=== PATIENT | male | born 1975 | race American Indian/Alaskan Native ===

== ENCOUNTER 2016-06-01 13:01 | Inpatient (IN) | payer BC, OTHER ==
[2016-06-01] MEDS ORDERED: DUONEB 0.5 MG-3 MG/3 ML SOLN IH ONE (13:19)
--- NOTE | 2016-06-01 13:20 | Emergency Department Report ---
Chief Complaint: Dyspnea/Respdistress Stated Complaint: SHIVAM/CHF Time Seen by Provider: 06/01/16 13:14 - HPI History of Present Illness: Patient is a 40 y/o male with h/o CHF who presents due to SOB since this morning. Patient denies any chest pain, he states that he ran out of his torsemide 2 days ago. - ROS Review of Systems: no chest pain - Exam Vital Signs: Vital Signs 06/01/16 13:04 Temperature 97.9 F Pulse Rate 107 H Respiratory 24 Rate Blood Pressure 136/80 O2 Sat by Pulse 88 Oximetry Physical Exam: NAD MSE screening note: Focused history and physical exam performed. Due to findings the following was ordered:sob protocol ED Disposition for MSE Condition: Stable
[2016-06-01] MEDS ORDERED: LASIX IV ONE (13:48)
--- NOTE | 2016-06-01 13:55 | Emergency Department Report ---
HPI - General Chief Complaint: Dyspnea/Respdistress Time Seen by Provider: 06/01/16 13:41 - HPI HPI: Room 20 The patient is a 40-year-old male presenting with a chief complaint of shortness of breath and peripheral edema. The patient has a history of congestive heart failure states for 1 week has noticed bilateral lower extremity edema. The patient states this morning he noticed swelling in his abdomen shortness of breath and decided to come to the ED. The patient states he ran out of his torsemide 2 days ago. Patient denies any history of chest pain or fever but admits to a cough occasionally productive of white sputum Location: [see above] Duration: [see above] Quality: Shortness of breath Severity: Moderate Modifying factors: [see above] Context: [see above] Mode of transportation: [not driving] ED Past Medical Hx - Past Medical History Hx Hypertension: Yes Hx Congestive Heart Failure: Yes - Surgical History Past Surgical History?: No - Family History Family history: no significant - Social History Smoking Status: Never Smoker Substance Use Type: None - Medications Home Medications: Home Medications Medication Instructions Recorded Confirmed Last Taken Type Amiodarone [Cordarone 200 MG TAB] 200 mg PO BID 03/04/16 06/01/16 03/03/16 History Carvedilol [Coreg] 12.5 mg PO BID 03/04/16 06/01/16 03/03/16 History Torsemide [Demadex] 40 mg PO BID 03/04/16 06/01/16 03/03/16 History hydrALAZINE [Apresoline] 50 mg PO BID 03/04/16 06/01/16 03/03/16 History Aspirin [Aspirin TAB] 325 mg PO QDAY 06/01/16 06/01/16 Unknown History ISOSORBIDE MONOnitrate [Imdur ER] 60 mg PO QDAY 06/01/16 06/01/16 Unknown History Spironolactone [Aldactone] 50 mg PO QDAY 06/01/16 06/01/16 Unknown History hydrALAZINE [Apresoline] 50 mg PO BID 06/01/16 06/01/16 Unknown History ED Review of Systems ROS: Stated complaint: SHIVAM/CHF Other details as noted in HPI Comment: All other systems reviewed and negative Constitutional: denies: chills, fever Eyes: denies: eye pain, eye discharge, vision change ENT: denies: ear pain, throat pain Respiratory: cough, shortness of breath Cardiovascular: denies: chest pain, palpitations Endocrine: no symptoms reported Gastrointestinal: denies: abdominal pain, nausea, diarrhea Genitourinary: denies: urgency, dysuria Musculoskeletal: denies: back pain, joint swelling, arthralgia Skin: denies: rash, lesions Neurological: denies: headache, weakness, paresthesias Psychiatric: denies: anxiety, depression Hematological/Lymphatic: other (bilateral lower extremity edema) Physical Exam - Physical Exam Vital Signs: Vital Signs 06/01/16 06/01/16 06/01/16 13:04 13:39 13:42 Temperature 97.9 F Pulse Rate 107 H 86 Respiratory 24 20 Rate Blood Pressure 136/80 O2 Sat by Pulse 88 95 Oximetry Physical Exam: GENERAL: The patient is well-developed well-nourished male lying on stretcher not appearing to be in acute distress. [] HEENT: Normocephalic. Atraumatic. Extraocular motions are intact. Patient has moist mucous membranes. NECK: Supple. Trachea midline CHEST/LUNGS: Clear to auscultation. There is no respiratory distress noted. HEART/CARDIOVASCULAR: Regular. There is no tachycardia. There is no gallop rub or murmur. ABDOMEN: Abdomen is soft, nontender. Patient has normal bowel sounds. There is no abdominal distention. SKIN: There is no rash. There is 2+ bilateral lower extremity pitting edema. There is pitting edema to the abdominal wall. There is no diaphoresis. NEURO: The patient is awake, alert, and oriented. The patient is cooperative. The patient has normal speech MUSCULOSKELETAL: There is no evidence of acute injury. ED Course Vital Signs 06/01/16 06/01/16 06/01/16 13:04 13:39 13:42 Temperature 97.9 F Pulse Rate 107 H 86 Respiratory 24 20 Rate Blood Pressure 136/80 O2 Sat by Pulse 88 95 Oximetry ED Medical Decision Making - Lab Data Result diagrams: 06/01/16 13:55 06/01/16 13:55 Laboratory Tests 06/01/16 06/01/16 06/01/16 13:55 13:55 13:55 WBC 5.8 RBC 6.07 H Hgb 17.3 H Hct 53.5 H MCV 88 MCH 29 MCHC 32 RDW 16.4 H Plt Count 220 [place] % (Auto) Street [employer] Installer PT 13.6 INR 1.05 APTT 29.1 Sodium 135 L Potassium 4.1 Chloride 93.1 L Carbon Dioxide 27 Anion Gap 19 BUN 31 H Creatinine 1.6 H Estimated GFR 58 BUN/Creatinine Ratio 19.37 Glucose 122 H Calcium 8.7 Total Bilirubin 0.5 AST 25 ALT 30 Alkaline Phosphatase 73 Total Creatine Kinase 366 H CK-MB (CK-2) Rel Index 1.1 Troponin T 0.015 Total Protein 7.2 Albumin 3.7 L Albumin/Globulin Ratio 1.1 - EKG Data -: EKG Interpreted by Me EKG shows normal: sinus rhythm Rate: normal - EKG Data When compared to previous EKG there are: previous EKG unavailable Interpretation: nonspecific ST-T wave ash (T-wave inversion in lead aVL) - Radiology Data Radiology results: image reviewed (chest x-ray) interpreted by me: Chest [id number]. CHF - Differential Diagnosis CHF exacerbation, ACS, pneumonia Critical care attestation.: If time is entered above; I have spent that time in minutes in the direct care of this critically ill patient, excluding procedure time. ED Disposition Clinical Impression: CHF exacerbation, Shortness of breath Disposition: OP ADMITTED IP TO THIS HOSP Is pt being admited?: Yes Does the pt Need Aspirin: No Condition: Fair Referrals: PRIMARY CARE, [Primary Care Provider] - 3-5 Days Time of Disposition: 15:05 (hospitalist notified)
--- NOTE | 2016-06-01 14:05 | Admit Criteria Form ---
Admission Criteria Documentation: HEART FAILURE: COMMON COMPLICATIONS Clinical Indications for Inpatient Care (Place 'X' for any and all applicable criteria): Ongoing inpatient care may be indicated for heart failure with ANY ONE of the following (1)(2)(3)(4)(5): [ ]I. Ongoing need for care for primary condition requiring frequent therapy adjustments because of changes in cardiac function (eg, drug dosage changes for drugs that are renally metabolized) [ ]II. New-onset heart failure [ ]III. Heart failure with decreased urine output not responsive to attempts to optimize volume status [ ]IV. Acute cardiac ischemia causing or associated with failure [X ]V. Complications of heart failure, including ANY ONE of the following: [ ]a) Pericardial effusion [ ]b) Symptomatic pleural effusion [X ]c) O2 saturation <90% or PO2 < 60 mm Hg (8.0 kPa) on room air or require baseline supplemental O2 [ ]d) Tachypnea [X ]e) Dyspnea [ ]f) Syncope [ ]g) Change in mental status [ ]h) Acute renal insufficiency that is severe (reduction of more than 50% in estimated glomerular filtration rate from baseline) or progressive reduction of more than 25% in estimated glomerular filtration rate from baseline, with creatinine continuing to rise) [ ]i) Hemodynamic instability [ ]j) Anasarca [ ]k) Clinically significant metabolic abnormalities due to heart failure (eg, new-onset metabolic acidosis) Extended stay beyond goal length of stay for primary condition may be needed until ALL of the following are present(1)(3): [ ]a) Stable and effective diuretic regimen established (or patient on stable dialysis regimen if in chronic renal failure) [ ]b) Breathing comfortably at rest [ ]c) Saturation of arterial oxygen greater than 90% or at acceptable baseline [ ]d) Pulmonary edema absent or improved [ ]e) Hemodynamic stability [ ]f) Volume status acceptable on oral medication [ ]g) Peripheral or sacral edema absent or improved [ ]h) Renal function stable and manageable at a lower level of care [ ]i) Complications (eg, pleural effusion) resolved or manageable at a lower level of care [ ]j) Patient or caregiver has received written discharge instructions or educational material addressing activity level, diet, discharge medications, follow-up appointment, weight monitoring, and what to do if symptoms worsen The original [employer] content created by [employer] has been revised. The portions of the content which have been revised are identified through the use of italic text or in bold, and [facility] has neither reviewed nor approved the modified material.All other unmodified content is copyright [facility]. Please see references footnoted in the original [facility] edition 2016 Admission Criteria Met: Yes
[2016-06-01 14:20] LABS: Hematocrit 53.5 % (35.5-45.6); Hemoglobin 17.3 gm/dl (11.8-15.2); Mean Corpuscular HGB Conc 32 % (32-34); Mean Corpuscular Hemoglobin 29 pg (28-32); Mean Corpuscular Volume 88 fl (84-94); Platelet Count 220 K/mm3 (140-440); Red Blood Count 6.07 M/mm3 (3.65-5.03); Red Cell Distribution Width 16.4 % (13.2-15.2); White Blood Count 5.8 K/mm3 (4.5-11.0)
[2016-06-01 14:30] LABS: INR 1.05 (0.87-1.13)
[2016-06-01 14:31] LABS: Partial Thromboplastin Time 29.1 Sec. (24.2-36.6)
[2016-06-01 14:35] LABS: Creatine Kinase MB 4.1 ng/mL (0.0-4.0)
--- NOTE | 2016-06-01 14:35 | XRay Report ---
CHEST X-RAY, 2 VIEWS History: Dyspnea. Findings: Mild cardiomegaly and mild pulmonary venous congestion are appreciated. The lungs are generally clear. No evidence for pneumonia, large pleural effusion or pneumothorax. Impression: Mild cardiomegaly and pulmonary venous congestion.
[2016-06-01 14:37] LABS: Albumin 3.7 g/dL (3.9-5); Albumin/Globulin Ratio 1.1 %; BUN/Creatinine Ratio 19.37; Bilirubin,Total 0.5 mg/dL (0.1-1.2); Calcium 8.7 mg/dL (8.4-10.2); Chloride 93.1 mmol/L (98-107); Potassium 4.1 mmol/L (3.6-5.0); Total Protein 7.2 g/dL (6.3-8.2)
[2016-06-01 15:03] LABS: Basophils % (Manual) 0 % (0.0-1.8); Blastocytes % (Manual) 0 %; Eosinophils % (Manual) 0 % (0.0-4.3)
[2016-06-01 15:04] LABS: Polychromasia Few
[2016-06-01 15:05] LABS: Diff Status Complete; Stomatocytes 1+
--- NOTE | 2016-06-01 15:51 | History and Physical Report ---
History of Present Illness Date of examination: 06/01/16 Date of admission: 06/01/16 Chief complaint: leg edema, shortness of breath History of present illness: Patient is 40-year-old with chronic CHF, hypertension , chronic kidney disease stage III and obesity. He presents with leg edema for 2 weeks and shortness of breath for 1 day. 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 He presents with leg edema for 2 weeks. He states he has been compliant with his medications and only ran out of his diuretic 1 day ago. He also complains of shortness of breath for 1 day. Shortness of breath is worse on exertion. He denies any chest pain ,no nausea, no vomiting or diaphoresis. In emergency department chest x-ray showed CHF. He was given Lasix IV and is being admitted for CHF exacerbation. Past History Past Medical History: heart failure, hypertension, renal failure (CKD stage 3), other (obesity) Past Surgical History: No surgical history Social history: single, smoking (Quit smoking 3 yrs ago), alcohol abuse (Quit alcohol 3 yrs ago), full code Family history: CAD (Father of myocardial infarction) Medications and Allergies Allergies Allergy/AdvReac Type Severity Reaction Status Date / Time No Known Allergies Allergy Unverified 03/04/16 11:14 Home Medications Medication Instructions Recorded Confirmed Last Taken Type Amiodarone [Cordarone 200 MG TAB] 200 mg PO BID 03/04/16 06/01/16 03/03/16 History Carvedilol [Coreg] 12.5 mg PO BID 03/04/16 06/01/16 03/03/16 History Torsemide [Demadex] 40 mg PO BID 03/04/16 06/01/16 03/03/16 History hydrALAZINE [Apresoline] 50 mg PO BID 03/04/16 06/01/16 03/03/16 History Aspirin [Aspirin TAB] 325 mg PO QDAY 06/01/16 06/01/16 Unknown History ISOSORBIDE MONOnitrate [Imdur ER] 60 mg PO QDAY 06/01/16 06/01/16 Unknown History Spironolactone [Aldactone] 50 mg PO QDAY 06/01/16 06/01/16 Unknown History hydrALAZINE [Apresoline] 50 mg PO BID 06/01/16 06/01/16 Unknown History Review of Systems All systems: negative (headache, no nausea, no vomiting, no abdominal pain, no dysuria, no fever. All other systems reviewed and are negative) Exam - Physical Exam Narrative exam: Gen appearance: Not in acute distress, obese HEENT: Normocephalic, atraumatic Neck : supple, no palpable lymph nodes, Lungs: Bilateral basal crackles, no rhonchi, no wheezes. Heart : S1 and S2 regular, no murmurs rubs or gallop, Abdomen: soft non-tender, non-distended, normal bowel sounds Extremities: Bilateral lower extremity edema, no clubbing or cyanosis, Neuro :awake alert oriented 3, no focal signs Psych :appropriate mood skin: no rash - Constitutional Vitals: Temp Pulse Resp BP Pulse Ox 97.9 F 89 20 122/78 95 06/01/16 13:04 06/01/16 15:00 06/01/16 15:45 06/01/16 15:00 06/01/16 15:00 Results - Labs CBC & Chem 7: 06/01/16 13:55 06/01/16 13:55 Labs: Abnormal lab results 06/01/16 06/01/16 06/01/16 Range/Units 13:55 13:55 13:55 RBC 6.07 H (3.65-5.03) M/mm3 Hgb 17.3 H (11.8-15.2) gm/dl Hct 53.5 H (35.5-45.6) % RDW 16.4 H (13.2-15.2) % Seg Neuts % (Manual) 75.0 H (40.0-70.0) % Lymphocytes % (Manual) 9.0 L (13.4-35.0) % Monocytes % (Manual) 16.0 H (0.0-7.3) % Lymphocytes # (Manual) 0.5 L (1.2-5.4) K/mm3 Monocytes # (Manual) 0.9 H (0.0-0.8) K/mm3 Sodium 135 L (137-145) mmol/L Chloride 93.1 L (98-107) mmol/L BUN 31 H (9-20) mg/dL Creatinine 1.6 H (0.8-1.5) mg/dL Glucose 122 H (75-100) mg/dL Total Creatine Kinase 366 H (55-170) units/L NT-Pro-B Natriuret Pep 3602 H (0-450) pg/mL Albumin 3.7 L (3.9-5) g/dL Assessment and Plan Acute on chronic congestive heart failure. Admit to telemetry. Lasix IV given in emergency department. Will continue with Lasix at low dose because he has chronic kidney disease. Obtain echocardiogram to determine ejection fraction. consult cardiology on-call. Continue Coreg and Imdur. Chronic kidney disease stage III. His creatinine is 1.6, which is probably his baseline. Monitor creatinine level, avoid nephrotoxins. Hypertension. Blood pressure is stable. he is on Hydralazine, Coreg DVT prophylaxis with heparin Full CODE STATUS Morbid obesity. I discussed with him importance of losing weight.
[2016-06-01] MEDS ORDERED: ZOFRAN IV PRN (15:57)
[2016-06-01 16:04] LABS: Bilirubin,Urine NEG (Negative); Blood,Urine SM (Negative); Ketones,Urine NEG (Negative); Leukocyte Esterase,Urine NEG (Negative); Nitrite,Urine NEG (Negative); Urobilinogen,Urine < 2.0 mg/dL (<2.0); WBC,Urine < 1.0 /HPF (0.0-6.0)
[2016-06-01] MEDS: HEPARIN SUB-Q SCH ×2 (16:50→22:50)
[2016-06-01] MEDS ORDERED: NITROSTAT SL PRN (19:28)
[2016-06-01] MEDS: CORDARONE PO SCH (22:50)
[2016-06-01] MEDS: COREG PO SCH (22:51)
[2016-06-01] MEDS: APRESOLINE PO SCH (22:51)
[2016-06-02] MEDS: TESSALON PERLES PO PRN ×3 (00:09→21:25)
[2016-06-02] MEDS ORDERED: LASIX PO SCH (06:00)
[2016-06-02] MEDS: HEPARIN SUB-Q SCH ×3 (06:21→21:29)
[2016-06-02 07:25] LABS: Anion Gap 18 mmol/L; Blood Urea Nitrogen 28 mg/dL (9-20); Calcium 8.8 mg/dL (8.4-10.2); Carbon Dioxide 28 mmol/L (22-30); Chloride 92.6 mmol/L (98-107); Glucose 99 mg/dL (75-100); Potassium 4.3 mmol/L (3.6-5.0); Sodium 134 mmol/L (137-145)
[2016-06-02 07:28] LABS: Hematocrit 53.5 % (35.5-45.6); Hemoglobin 17.1 gm/dl (11.8-15.2); Mean Corpuscular HGB Conc 32 % (32-34); Mean Corpuscular Hemoglobin 29 pg (28-32); Mean Corpuscular Volume 89 fl (84-94); Platelet Count 223 K/mm3 (140-440); Red Blood Count 6.02 M/mm3 (3.65-5.03); Red Cell Distribution Width 16.3 % (13.2-15.2); White Blood Count 6.7 K/mm3 (4.5-11.0)
[2016-06-02 09:19] LABS: Basophils % (Manual) 0 % (0.0-1.8); Blastocytes % (Manual) 0 %
[2016-06-02 09:20] LABS: Diff Status Complete; Eosinophils % (Manual) 0 % (0.0-4.3); Polychromasia Few
[2016-06-02] MEDS: ASPIRIN PO SCH (09:31)
[2016-06-02] MEDS: COREG PO SCH ×2 (09:32→21:23)
[2016-06-02] MEDS: APRESOLINE PO SCH ×2 (09:32→21:25)
[2016-06-02] MEDS: IMDUR PO SCH (09:32)
[2016-06-02] MEDS: CORDARONE PO SCH ×2 (09:32→21:25)
[2016-06-02] MEDS: PROVENTIL IH PRN (09:44)
[2016-06-02] MEDS: LASIX IV SCH ×2 (10:36→21:28)
--- NOTE | 2016-06-02 12:03 | Progress Note ---
Assessment and Plan Assessment and plan: Acute on chronic congestive heart failure. Continue laix iv twice daily. Echocardiogram to determine ejection fraction. Cardiology to evaluate today. Continue Coreg and Imdur. Chronic kidney disease stage III. His creatinine is 1.4 today. Monitor creatinine level, avoid nephrotoxins. Hypertension. Blood pressure is stable. He is on Hydralazine, Coreg Hyponatremia. Monitor DVT prophylaxis with heparin Full CODE STATUS Morbid obesity. I discussed with him importance of losing weight. History Interval history: less shortness of breath, no chest pain Hospitalist Physical - Physical exam Narrative exam: Gen appearance: Not in acute distress, obese HEENT: Normocephalic, atraumatic Neck : supple, no palpable lymph nodes, Lungs: Bilateral basal crackles, no rhonchi, no wheezes. Heart : S1 and S2 regular, no murmurs rubs or gallop, Abdomen: soft non-tender, non-distended, normal bowel sounds Extremities: Bilateral lower extremity edema, no clubbing or cyanosis, Neuro :awake alert oriented 3, no focal signs Psych :appropriate mood skin: no rash - Constitutional Vitals: Temp Pulse Resp BP Pulse Ox 98.1 F 87 20 120/78 91 06/02/16 04:25 06/02/16 09:54 06/02/16 09:54 06/02/16 08:36 06/02/16 08:36 Results - Labs CBC & Chem 7: 06/02/16 06:30 06/02/16 06:30 Labs: Laboratory Last Values WBC 6.7 K/mm3 (4.5-11.0) 06/02/16 06:30 RBC 6.02 M/mm3 (3.65-5.03) H 06/02/16 06:30 Hgb 17.1 gm/dl (11.8-15.2) H 06/02/16 06:30 Hct 53.5 % (35.5-45.6) H 06/02/16 06:30 MCV 89 fl (84-94) 06/02/16 06:30 MCH 29 pg (28-32) 06/02/16 06:30 MCHC 32 % (32-34) 06/02/16 06:30 RDW 16.3 % (13.2-15.2) H 06/02/16 06:30 Plt Count 223 K/mm3 (140-440) 06/02/16 06:30 [place] % (Auto) Therapy Teacher 06/02/16 06:30 Add Manual Diff Complete 06/02/16 06:30 Total Counted 100 06/02/16 06:30 Seg Neuts % (Manual) 75.0 % (40.0-70.0) H 06/02/16 06:30 Band Neutrophils % 2.0 % 06/02/16 06:30 Lymphocytes % (Manual) 8.0 % (13.4-35.0) L 06/02/16 06:30 Reactive Lymphs % (Man) 0 % 06/02/16 06:30 Monocytes % (Manual) 15.0 % (0.0-7.3) H 06/02/16 06:30 Eosinophils % (Manual) 0 % (0.0-4.3) 06/02/16 06:30 Basophils % (Manual) 0 % (0.0-1.8) 06/02/16 06:30 Metamyelocytes % 0 % 06/02/16 06:30 Myelocytes % 0 % 06/02/16 06:30 Promyelocytes % 0 % 06/02/16 06:30 Blast Cells % 0 % 06/02/16 06:30 Nucleated RBC % Not Reportable 06/02/16 06:30 Seg Neutrophils # Man 5.0 K/mm3 (1.8-7.7) 06/02/16 06:30 Band Neutrophils # 0.1 K/mm3 06/02/16 06:30 Lymphocytes # (Manual) 0.5 K/mm3 (1.2-5.4) L 06/02/16 06:30 Abs React Lymphs (Man) 0.0 K/mm3 06/02/16 06:30 Monocytes # (Manual) 1.0 K/mm3 (0.0-0.8) H 06/02/16 06:30 Eosinophils # (Manual) 0.0 K/mm3 (0.0-0.4) 06/02/16 06:30 Basophils # (Manual) 0.0 K/mm3 (0.0-0.1) 06/02/16 06:30 Metamyelocytes # 0.0 K/mm3 06/02/16 06:30 Myelocytes # 0.0 K/mm3 06/02/16 06:30 Promyelocytes # 0.0 K/mm3 06/02/16 06:30 Blast Cells # 0.0 K/mm3 06/02/16 06:30 WBC Morphology Not Reportable 06/02/16 06:30 Hypersegmented Neuts Not Reportable 06/02/16 06:30 Hyposegmented Neuts Not Reportable 06/02/16 06:30 Hypogranular Neuts Not Reportable 06/02/16 06:30 Smudge Cells Not Reportable 06/02/16 06:30 Toxic Granulation Not Reportable 06/02/16 06:30 Toxic Vacuolation Not Reportable 06/02/16 06:30 Dohle Bodies Not Reportable 06/02/16 06:30 Pelger-Huet Anomaly Not Reportable 06/02/16 06:30 Basilia Rods Not Reportable 06/02/16 06:30 Platelet Estimate Appears normal 06/02/16 06:30 Clumped Platelets Not Reportable 06/02/16 06:30 Plt Clumps, EDTA Not Reportable 06/02/16 06:30 Large Platelets Not Reportable 06/02/16 06:30 Giant Platelets Not Reportable 06/02/16 06:30 Platelet Satelliting Not Reportable 06/02/16 06:30 Plt Morphology Comment Not Reportable 06/02/16 06:30 RBC Morphology Not Reportable 06/02/16 06:30 Dimorphic RBCs Not Reportable 06/02/16 06:30 Polychromasia Few 06/02/16 06:30 Hypochromasia Not Reportable 06/02/16 06:30 Poikilocytosis Not Reportable 06/02/16 06:30 Anisocytosis Not Reportable 06/02/16 06:30 Microcytosis Not Reportable 06/02/16 06:30 Macrocytosis Not Reportable 06/02/16 06:30 Spherocytes Not Reportable 06/02/16 06:30 Pappenheimer Bodies Not Reportable 06/02/16 06:30 Sickle Cells Not Reportable 06/02/16 06:30 Target Cells Not Reportable 06/02/16 06:30 Tear Drop Cells Not Reportable 06/02/16 06:30 Ovalocytes Not Reportable 06/02/16 06:30 Stomatocytes 1+ 06/01/16 13:55 Helmet Cells Not Reportable 06/02/16 06:30 Atkinson-Nelsonia Bodies Not Reportable 06/02/16 06:30 Kendall Rings Not Reportable 06/02/16 06:30 Mihaela Cells Not Reportable 06/02/16 06:30 Bite Cells Not Reportable 06/02/16 06:30 Crenated Cell Not Reportable 06/02/16 06:30 Elliptocytes Not Reportable 06/02/16 06:30 Acanthocytes (Spur) Not Reportable 06/02/16 06:30 Rouleaux Not Reportable 06/02/16 06:30 Hemoglobin C Crystals Not Reportable 06/02/16 06:30 Schistocytes Not Reportable 06/02/16 06:30 Malaria parasites Not Reportable 06/02/16 06:30 Jacob Bodies Not Reportable 06/02/16 06:30 Hem Pathologist Commnt No 06/02/16 06:30 PT 13.6 Sec. (12.2-14.9) 06/01/16 13:55 INR 1.05 (0.87-1.13) 06/01/16 13:55 APTT 29.1 Sec. (24.2-36.6) 06/01/16 13:55 Sodium 134 mmol/L (137-145) L 06/02/16 06:30 Potassium 4.3 mmol/L (3.6-5.0) 06/02/16 06:30 Chloride 92.6 mmol/L (98-107) L 06/02/16 06:30 Carbon Dioxide 28 mmol/L (22-30) 06/02/16 06:30 Anion Gap 18 mmol/L 06/02/16 06:30 BUN 28 mg/dL (9-20) H 06/02/16 06:30 Creatinine 1.4 mg/dL (0.8-1.5) 06/02/16 06:30 Estimated GFR > 60 ml/min 06/02/16 06:30 BUN/Creatinine Ratio 20.00 % 06/02/16 06:30 Glucose 99 mg/dL (75-100) 06/02/16 06:30 Calcium 8.8 mg/dL (8.4-10.2) 06/02/16 06:30 Total Bilirubin 0.5 mg/dL (0.1-1.2) 06/01/16 13:55 AST 25 units/L (5-40) 06/01/16 13:55 ALT 30 units/L (7-56) 06/01/16 13:55 Alkaline Phosphatase 73 units/L (35-129) 06/01/16 13:55 Total Creatine Kinase 366 units/L (55-170) H 06/01/16 13:55 CK-MB (CK-2) Rel Index 1.1 (0-4) 06/01/16 13:55 Troponin T 0.017 ng/mL (0.00-0.029) 06/01/16 19:23 NT-Pro-B Natriuret Pep 3602 pg/mL (0-450) H 06/01/16 13:55 Total Protein 7.2 g/dL (6.3-8.2) 06/01/16 13:55 Albumin 3.7 g/dL (3.9-5) L 06/01/16 13:55 Albumin/Globulin Ratio 1.1 % 06/01/16 13:55 Urine Color Straw (Yellow) 06/01/16 13:15 Urine Turbidity Clear (Clear) 06/01/16 13:15 Urine pH 6.0 (5.0-7.0) 06/01/16 13:15 Ur Specific Webb 1.008 (1.003-1.030) 06/01/16 13:15 Urine Protein 30 mg/dl mg/dL (Negative) 06/01/16 13:15 Urine Glucose (UA) Neg mg/dL (Negative) 06/01/16 13:15 Urine Ketones Neg mg/dL (Negative) 06/01/16 13:15 Urine Blood Sm (Negative) 06/01/16 13:15 Urine Nitrite Neg (Negative) 06/01/16 13:15 Urine Bilirubin Neg (Negative) 06/01/16 13:15 Urine Urobilinogen < 2.0 mg/dL (<2.0) 06/01/16 13:15 Ur Leukocyte Esterase Neg (Negative) 06/01/16 13:15 Urine WBC (Auto) < 1.0 /HPF (0.0-6.0) 06/01/16 13:15 Urine RBC (Auto) 3.0 /HPF (0.0-6.0) 06/01/16 13:15
--- NOTE | 2016-06-02 13:44 | Consultation ---
History of Present Illness Consult date: 06/02/16 Consult reason: congestive heart failure History of present illness: This patient is a 40-year-old man who presented to the hospital with shortness of breath, chest x-ray consistent with congestive heart failure. He has an extensive cardiac history of a dilated nonischemic cardiomyopathy. A year ago, April 2015 at [facility] a cardiac catheterization demonstrated normal coronaries. An echocardiogram reported left ventricle ejection fraction less than 20%. He has been maintained on medical therapy including afterload reducing agents, beta blockers and oral antiplatelet therapy. He admits to having recommendation for internal cardiac defibrillator , which he has so far declined. Comorbidities include severe obesity, and obstructive sleep apnea. The patient has also had one documented episode of atrial fibrillation, and is currently on amiodarone. He states that he was initially treated with oral anticoagulant therapy, but this was stopped by his primary package collector in [facility], who recommended stoppage of anticoagulation for oral aspirin alone. With regards to the current decompensation, he states that he has been compliant with his medications, but he appears to be noncompliant with dietary salt restriction. He admits to a fondness for high salt fast foods. He denies chest pain, palpitations or syncope. EKG is normal sinus rhythm, poor R-wave progression, no acute ischemic changes. Cardiac enzymes and negative. Past History Past Medical History: heart failure, hypertension, renal failure (CKD stage 3), other (obesity, sleep apnea) Past Surgical History: No surgical history Social history: single, smoking (Quit smoking 3 yrs ago), alcohol abuse (Quit alcohol 3 yrs ago), full code Family history: CAD (Father of myocardial infarction) Medications and Allergies Allergies Allergy/AdvReac Type Severity Reaction Status Date / Time No Known Allergies Allergy Unverified 03/04/16 11:14 Home Medications Medication Instructions Recorded Confirmed Last Taken Type Amiodarone [Cordarone 200 MG TAB] 200 mg PO BID 03/04/16 06/01/16 03/03/16 History Carvedilol [Coreg] 12.5 mg PO BID 03/04/16 06/01/16 03/03/16 History Torsemide [Demadex] 40 mg PO BID 03/04/16 06/01/16 03/03/16 History hydrALAZINE [Apresoline] 50 mg PO BID 03/04/16 06/01/1603/03/16 History Aspirin [Aspirin TAB] 325 mg PO QDAY 06/01/16 06/01/16 Unknown History ISOSORBIDE MONOnitrate [Imdur ER] 60 mg PO QDAY 06/01/16 06/01/16 Unknown History Spironolactone [Aldactone] 50 mg PO QDAY 06/01/16 06/01/16 Unknown History hydrALAZINE [Apresoline] 50 mg PO BID 06/01/16 06/01/16 Unknown History Active Meds: Active Medications Acetaminophen (Tylenol) 650 mg PO Q4H PRN PRN Reason: Pain MILD(1-3)/Fever >100.5/GILL Albuterol (Proventil) 2.5 mg IH Q3HRT PRN PRN Reason: Shortness Of Breath Last Admin: 06/02/16 09:44 Dose: 2.5 mg Amiodarone HCl (Cordarone) 200 mg PO BID [facility] Last Admin: 06/02/16 09:32 Dose: 200 mg Aspirin (Aspirin) 325 mg PO QDAY [facility] Last Admin: 06/02/16 09:31 Dose: 325 mg Benzonatate (Tessalon Perles) 100 mg PO Q6H PRN PRN Reason: Cough Last Admin: 06/02/16 06:25 Dose: 100 mg Carvedilol (Coreg) 12.5 mg PO BID [facility] Last Admin: 06/02/16 09:32 Dose: 12.5 mg Furosemide (Lasix) 40 mg IV Q12H [facility] Last Admin: 06/02/16 10:36 Dose: 40 mg Heparin Sodium (Porcine) (Heparin) 5,000 unit SUB-Q Q8HR [facility] Last Admin: 06/02/16 06:21 Dose: 5,000 unit Hydralazine HCl (Apresoline) 50 mg PO BID [facility] Last Admin: 06/02/16 09:32 Dose: 50 mg Isosorbide Mononitrate (Imdur) 60 mg PO QDAY [facility] Last Admin: 06/02/16 09:32 Dose: 60 mg Nitroglycerin (Nitrostat) 0.4 mg SL .Q5MIN PRN PRN Reason: Chest Pain Ondansetron HCl (Zofran) 4 mg IV Q6H PRN PRN Reason: nausea or vomiting Review of Systems Cardiovascular: orthopnea, edema, shortness of breath, no chest pain, no palpitations, no rapid/irregular heart beat, no syncope, no lightheadedness Physical Examination Vital Signs Temp Pulse Resp BP Pulse Ox 97.9 F 107 H 24 136/80 88 06/01/16 13:04 06/01/16 13:04 06/01/16 13:04 06/01/16 13:04 06/01/16 13:04 General appearance: obese HEENT: Positive: PERRL Neck: Positive: neck supple Cardiac: Positive: Reg Rate and Rhythm Lungs: Positive: Decreased Breath Sounds Neuro: Positive: Grossly Intact Abdomen: Positive: Soft Male genitourinary: Positive: deferred Skin: Positive: Clear Extremities: Present: +1 Edema Results 06/02/16 06:30 06/02/16 06:30 CBC 06/02/16 Range/Units 06:30 WBC 6.7 (4.5-11.0) K/mm3 RBC 6.02 H (3.65-5.03) M/mm3 Hgb 17.1 H (11.8-15.2) gm/dl Hct 53.5 H (35.5-45.6) % Plt Count 223 (140-440) K/mm3 Comprehensive Metabolic Panel 06/02/16 Range/Units 06:30 Sodium 134 L (137-145) mmol/L Potassium 4.3 (3.6-5.0) mmol/L Chloride 92.6 L (98-107) mmol/L Carbon Dioxide 28 (22-30) mmol/L BUN 28 H (9-20) mg/dL Creatinine 1.4 (0.8-1.5) mg/dL Glucose 99 (75-100) mg/dL Calcium 8.8 (8.4-10.2) mg/dL EKG interpretations - Telemetry EKG Rhythm: Sinus Rhythm Assessment and Plan - Patient Problems (1) Acute on chronic systolic heart failure Current Visit: Yes Status: Acute Plan to address problem: Patient with a dilated nonischemic cardiomyopathy, presents with acute on chronic systolic heart failure, likely due to dietary salt indiscretion. Recommendations: Strict low-salt diet. Intravenous diuretics, beta blockers and afterload reducing agents as well as oral antiplatelet therapy. We will commence a trial of intravenous milrinone inotropic therapy for 48 hours.
[2016-06-02] MEDS: PRIMACOR 20 MG in D5W 80 ML IV SCH ×2 (15:50→21:17)
[2016-06-03] MEDS: PROVENTIL IH PRN (11:24)
[2016-06-03] MEDS: APRESOLINE PO SCH ×2 (13:27→22:50)
[2016-06-03] MEDS: COREG PO SCH ×2 (13:27→22:51)
[2016-06-03] MEDS: HEPARIN SUB-Q SCH ×3 (13:29→22:54)
[2016-06-03] MEDS: IMDUR PO SCH (14:01)
[2016-06-03] MEDS: ASPIRIN PO SCH (14:01)
[2016-06-03] MEDS: LASIX IV SCH ×2 (14:01→22:49)
[2016-06-03] MEDS: CORDARONE PO SCH ×2 (14:01→22:51)
--- NOTE | 2016-06-03 14:39 | Progress Note ---
Assessment and Plan Acute systolic heart failure Hx of dilated NICMP normal coronaries on LHC at [facility] 04/2015 EF 20% on echo 2014 Hx of paroxysmal Afib on aspirin and amiodarone as an outpatient Sleep apnea noncompliant with Cpap Obese Recommendations: Strict low-salt diet. Daily weight. Intravenous diuretics, beta blockers and afterload reducing agents as well as oral antiplatelet therapy. Continue trial of intravenous milrinone inotropic therapy for another 24 hours. Subjective Date of service: 06/03/16 Interval history: Patient still with shortness of breath. He denies chest pain. Objective Vital Signs Temp Pulse Pulse Pulse Resp BP BP 06/03/16 00:22 98.0 F 99 H 22 112/64 06/02/16 22:30 06/02/16 22:00 22 06/02/16 21:25 95 H 136/89 06/02/16 21:23 95 H 136/89 06/02/16 21:17 98.9 F 93 H 22 136/89 06/02/16 18:00 90 06/02/16 16:51 84 22 115/78 Pulse Ox 06/03/16 00:22 93 06/02/16 22:30 96 06/02/16 22:00 06/02/16 21:25 06/02/16 21:23 06/02/16 21:17 91 06/02/16 18:00 06/02/16 16:51 96 - Physical Examination General: No Apparent Distress HEENT: Positive: PERRL Neck: Positive: neck supple Cardiac: Positive: Reg Rate and Rhythm Lungs: Positive: Decreased Breath Sounds Neuro: Positive: Grossly Intact Extremities: Present: +1 Edema
[2016-06-03 14:51] LABS: BUN/Creatinine Ratio 19.28; Blood Urea Nitrogen 27 mg/dL (9-20); Calcium 8.6 mg/dL (8.4-10.2); Carbon Dioxide 30 mmol/L (22-30); Chloride 93.1 mmol/L (98-107); Glucose 112 mg/dL (75-100); Potassium 4.2 mmol/L (3.6-5.0); Sodium 134 mmol/L (137-145)
[2016-06-03 14:51] LABS: Hematocrit 52.9 % (35.5-45.6); Hemoglobin 17.1 gm/dl (11.8-15.2); Mean Corpuscular HGB Conc 32 % (32-34); Mean Corpuscular Hemoglobin 28 pg (28-32); Mean Corpuscular Volume 88 fl (84-94); Platelet Count 221 K/mm3 (140-440); Red Blood Count 6.04 M/mm3 (3.65-5.03); Red Cell Distribution Width 16.3 % (13.2-15.2); White Blood Count 6.3 K/mm3 (4.5-11.0)
--- NOTE | 2016-06-03 14:56 | Progress Note ---
Assessment and Plan Assessment and plan: Acute on chronic systolic congestive heart failure. Continue Lasix iv twice daily. Echocardiogram to determine ejection fraction. Cardiology evaluated the patient yesterday and started on Milrinone infusion. Continue milrinone day for another 24 hours. Continue Coreg and Imdur. Non-ischemic cardiomyopathy. EF less than 20% in 2014. He had declined AICD was Chronic kidney disease stage III. His creatinine is 1.4 today. Monitor creatinine level, avoid nephrotoxins. Hypertension. Blood pressure is stable. He is on Hydralazine, Coreg Hyponatremia. Monitor DVT prophylaxis with heparin Full CODE STATUS Morbid obesity. I discussed with him importance of losing weight. History Interval history: less shortness of breath, no chest pain No fever Less leg edema Hospitalist Physical - Physical exam Narrative exam: Gen appearance: Not in acute distress, obese HEENT: Normocephalic, atraumatic Neck : supple, no palpable lymph nodes, Lungs: Bilateral basal crackles, no rhonchi, no wheezes. Heart : S1 and S2 regular, no murmurs rubs or gallop, Abdomen: soft non-tender, non-distended, normal bowel sounds Extremities: Bilateral lower extremity edema, no clubbing or cyanosis, Neuro :awake alert oriented 3, no focal signs Psych :appropriate mood skin: no rash - Constitutional Vitals: Temp Pulse Resp BP Pulse Ox 98.0 F 99 H 22 112/64 93 06/03/16 00:22 06/03/16 00:22 06/03/16 00:22 06/03/16 00:22 06/03/16 00:22 General appearance: Present: obese Results - Labs CBC & Chem 7: 06/03/16 07:01 06/03/16 06:00 Labs: Laboratory Last Values WBC 6.7 K/mm3 (4.5-11.0) 06/02/16 06:30 RBC 6.02 M/mm3 (3.65-5.03) H 06/02/16 06:30 Hgb 17.1 gm/dl (11.8-15.2) H 06/02/16 06:30 Hct 53.5 % (35.5-45.6) H 06/02/16 06:30 MCV 89 fl (84-94) 06/02/16 06:30 MCH 29 pg (28-32) 06/02/16 06:30 MCHC 32 % (32-34) 06/02/16 06:30 RDW 16.3 % (13.2-15.2) H 06/02/16 06:30 Plt Count 223 K/mm3 (140-440) 06/02/16 06:30 Roberts % (Auto) Auto Hauler 06/02/16 06:30 Add Manual Diff Complete 06/02/16 06:30 Total Counted 100 06/02/16 06:30 Seg Neuts % (Manual) 75.0 % (40.0-70.0) H 06/02/16 06:30 Band Neutrophils % 2.0 % 06/02/16 06:30 Lymphocytes % (Manual) 8.0 % (13.4-35.0) L 06/02/16 06:30 Reactive Lymphs % (Man) 0 % 06/02/16 06:30 Monocytes % (Manual) 15.0 % (0.0-7.3) H 06/02/16 06:30 Eosinophils % (Manual) 0 % (0.0-4.3) 06/02/16 06:30 Basophils % (Manual) 0 % (0.0-1.8) 06/02/16 06:30 Metamyelocytes % 0 % 06/02/16 06:30 Myelocytes % 0 % 06/02/16 06:30 Promyelocytes % 0 % 06/02/16 06:30 Blast Cells % 0 % 06/02/16 06:30 Nucleated RBC % Not Reportable 06/02/16 06:30 Seg Neutrophils # Man 5.0 K/mm3 (1.8-7.7) 06/02/16 06:30 Band Neutrophils # 0.1 K/mm3 06/02/16 06:30 Lymphocytes # (Manual) 0.5 K/mm3 (1.2-5.4) L 06/02/16 06:30 Abs React Lymphs (Man) 0.0 K/mm3 06/02/16 06:30 Monocytes # (Manual) 1.0 K/mm3 (0.0-0.8) H 06/02/16 06:30 Eosinophils # (Manual) 0.0 K/mm3 (0.0-0.4) 06/02/16 06:30 Basophils # (Manual) 0.0 K/mm3 (0.0-0.1) 06/02/16 06:30 Metamyelocytes # 0.0 K/mm3 06/02/16 06:30 Myelocytes # 0.0 K/mm3 06/02/16 06:30 Promyelocytes # 0.0 K/mm3 06/02/16 06:30 Blast Cells # 0.0 K/mm3 06/02/16 06:30 WBC Morphology Not Reportable 06/02/16 06:30 Hypersegmented Neuts Not Reportable 06/02/16 06:30 Hyposegmented Neuts Not Reportable 06/02/16 06:30 Hypogranular Neuts Not Reportable 06/02/16 06:30 Smudge Cells Not Reportable 06/02/16 06:30 Toxic Granulation Not Reportable 06/02/16 06:30 Toxic Vacuolation Not Reportable 06/02/16 06:30 Dohle Bodies Not Reportable 06/02/16 06:30 Pelger-Huet Anomaly Not Reportable 06/02/16 06:30 Basilia Rods Not Reportable 06/02/16 06:30 Platelet Estimate Appears normal 06/02/16 06:30 Clumped Platelets Not Reportable 06/02/16 06:30 Plt Clumps, EDTA Not Reportable 06/02/16 06:30 Large Platelets Not Reportable 06/02/16 06:30 Giant Platelets Not Reportable 06/02/16 06:30 Platelet Satelliting Not Reportable 06/02/16 06:30 Plt Morphology Comment Not Reportable 06/02/16 06:30 RBC Morphology Not Reportable 06/02/16 06:30 Dimorphic RBCs Not Reportable 06/02/16 06:30 Polychromasia Few 06/02/16 06:30 Hypochromasia Not Reportable 06/02/16 06:30 Poikilocytosis Not Reportable 06/02/16 06:30 Anisocytosis Not Reportable 06/02/16 06:30 Microcytosis Not Reportable 06/02/16 06:30 Macrocytosis Not Reportable 06/02/16 06:30 Spherocytes Not Reportable 06/02/16 06:30 Pappenheimer Bodies Not Reportable 06/02/16 06:30 Sickle Cells Not Reportable 06/02/16 06:30 Target Cells Not Reportable 06/02/16 06:30 Tear Drop Cells Not Reportable 06/02/16 06:30 Ovalocytes Not Reportable 06/02/16 06:30 Stomatocytes 1+ 06/01/16 13:55 Helmet Cells Not Reportable 06/02/16 06:30 [place] Bodies Not Reportable 06/02/16 06:30 [place] Rings Not Reportable 06/02/16 06:30 Mihaela Cells Not Reportable 06/02/16 06:30 Bite Cells Not Reportable 06/02/16 06:30 Crenated Cell Not Reportable 06/02/16 06:30 Elliptocytes Not Reportable 06/02/16 06:30 Acanthocytes (Spur) Not Reportable 06/02/16 06:30 Rouleaux Not Reportable 06/02/16 06:30 Hemoglobin C Crystals Not Reportable 06/02/16 06:30 Schistocytes Not Reportable 06/02/16 06:30 Malaria parasites Not Reportable 06/02/16 06:30 Jacob Bodies Not Reportable 06/02/16 06:30 Hem Pathologist Commnt No 06/02/16 06:30 PT 13.6 Sec. (12.2-14.9) 06/01/16 13:55 INR 1.05 (0.87-1.13) 06/01/16 13:55 APTT 29.1 Sec. (24.2-36.6) 06/01/16 13:55 Sodium 134 mmol/L (137-145) L 06/02/16 06:30 Potassium 4.3 mmol/L (3.6-5.0) 06/02/16 06:30 Chloride 92.6 mmol/L (98-107) L 06/02/16 06:30 Carbon Dioxide 28 mmol/L (22-30) 06/02/16 06:30 Anion Gap 18 mmol/L 06/02/16 06:30 BUN 28 mg/dL (9-20) H 06/02/16 06:30 Creatinine 1.4 mg/dL (0.8-1.5) 06/02/16 06:30 Estimated GFR > 60 ml/min 06/03/16 06:00 BUN/Creatinine Ratio 19.28 % 06/03/16 06:00 Glucose 99 mg/dL (75-100) 06/02/16 06:30 Calcium 8.8 mg/dL (8.4-10.2) 06/02/16 06:30 Total Bilirubin 0.5 mg/dL (0.1-1.2) 06/01/16 13:55 AST 25 units/L (5-40) 06/01/16 13:55 ALT 30 units/L (7-56) 06/01/16 13:55 Alkaline Phosphatase 73 units/L (35-129) 06/01/16 13:55 Total Creatine Kinase 366 units/L (55-170) H 06/01/16 13:55 CK-MB (CK-2) Rel Index 1.1 (0-4) 06/01/16 13:55 Troponin T 0.017 ng/mL (0.00-0.029) 06/01/16 19:23 NT-Pro-B Natriuret Pep 3602 pg/mL (0-450) H 06/01/16 13:55 Total Protein 7.2 g/dL (6.3-8.2) 06/01/16 13:55 Albumin 3.7 g/dL (3.9-5) L 06/01/16 13:55 Albumin/Globulin Ratio 1.1 % 06/01/16 13:55 Urine Color Straw (Yellow) 06/01/16 13:15 Urine Turbidity Clear (Clear) 06/01/16 13:15 Urine pH 6.0 (5.0-7.0) 06/01/16 13:15 Ur Specific [place] 1.008 (1.003-1.030) 06/01/16 13:15 Urine Protein 30 mg/dl mg/dL (Negative) 06/01/16 13:15 Urine Glucose (UA) Neg mg/dL (Negative) 06/01/16 13:15 Urine Ketones Neg mg/dL (Negative) 06/01/16 13:15 Urine Blood Sm (Negative) 06/01/16 13:15 Urine Nitrite Neg (Negative) 06/01/16 13:15 Urine Bilirubin Neg (Negative) 06/01/16 13:15 Urine Urobilinogen < 2.0 mg/dL (<2.0) 06/01/16 13:15 Ur Leukocyte Esterase Neg (Negative) 06/01/16 13:15 Urine WBC (Auto) < 1.0 /HPF (0.0-6.0) 01/30/17 13:15 Urine RBC (Auto) 3.0 /HPF (0.0-6.0) 06/01/16 13:15
[2016-06-03 15:31] LABS: Anion Gap 15 mmol/L
[2016-06-03] MEDS: PRIMACOR 20 MG in D5W 80 ML IV SCH (17:22)
[2016-06-03 20:52] LABS: ISTAT Base Excess 10; ISTAT HCO3 35.8; ISTAT PCO2 63.4 (35-45); ISTAT PO2 80 (80-105); ISTAT SO2 95; ISTAT TCO2 38
[2016-06-03 22:17] LABS: Creatine Kinase MB 2.5 ng/mL (0.0-4.0)
[2016-06-04] MEDS: PRIMACOR 20 MG in D5W 80 ML IV SCH ×3 (00:53→10:44)
[2016-06-04] MEDS: HEPARIN SUB-Q SCH ×3 (06:33→21:16)
--- NOTE | 2016-06-04 08:09 | XRay Report ---
AP chest x-ray. Findings: Cardiomegaly with pulmonary venous congestion persists without interval change since June 01. No pleural fluid is seen. There are no new findings.
[2016-06-04] MEDS: APRESOLINE PO SCH ×2 (10:43→21:17)
[2016-06-04] MEDS: CORDARONE PO SCH ×2 (10:43→21:17)
[2016-06-04] MEDS: IMDUR PO SCH (10:43)
[2016-06-04] MEDS: LASIX IV SCH ×2 (10:44→21:55)
[2016-06-04] MEDS: ASPIRIN PO SCH (10:44)
[2016-06-04] MEDS: COREG PO SCH ×2 (10:44→21:17)
[2016-06-04] MEDS: TYLENOL PO PRN ×2 (10:59→21:17)
--- NOTE | 2016-06-04 11:51 | Progress Note ---
Assessment and Plan Acute systolic heart failure Hx of dilated NICMP normal coronaries on LHC at [facility] 04/2015 EF 20% on echo 2014 Hx of paroxysmal Afib on aspirin and amiodarone as an outpatient Sleep apnea noncompliant with home Cpap Obese Recommendations: Strict low-salt diet. Daily weight. Intravenous diuretics, beta blockers and afterload reducing agents as well as oral antiplatelet therapy. Continue trial of intravenous milrinone inotropic therapy as ordered. Subjective Date of service: 06/04/16 Interval history: Patient reports shortness of breath is improving. Continues on IV milrinone. Objective Vital Signs Temp Pulse Pulse Pulse Resp BP Pulse Ox 06/04/16 11:04 85 21 95 06/04/16 11:03 85 06/04/16 08:49 92 06/04/16 08:00 98.9 F 99 H 20 131/74 98 06/04/16 06:22 99.9 F H 98 H 26 H 110/71 99 06/04/16 00:49 99.9 F H 104 H 24 138/84 94 06/03/16 23:19 102 H 28 H 94 06/03/16 22:00 20 06/03/16 21:30 99.2 F 101 H 22 153/94 97 06/03/16 20:12 93 06/03/16 18:00 94 H 06/03/16 17:51 98.8 F 90 18 147/91 97 06/03/16 16:35 97 - Physical Examination General: No Apparent Distress, Other (Obese) HEENT: Positive: PERRL Neck: Positive: neck supple Cardiac: Positive: Reg Rate and Rhythm Lungs: Positive: Decreased Breath Sounds Neuro: Positive: Grossly Intact Extremities: Present: +1 Edema - Labs and Meds Cardiac Enzymes 06/03/16 Range/Units 21:23 CK-MB (CK-2) 2.5 (0.0-4.0) ng/mL CBC 06/03/16 Range/Units 07:01 WBC 6.3 (4.5-11.0) K/mm3 RBC 6.04 H (3.65-5.03) M/mm3 Hgb 17.1 H (11.8-15.2) gm/dl Hct 52.9 H (35.5-45.6) % Plt Count 221 (140-440) K/mm3 Comprehensive Metabolic Panel 06/03/16 Range/Units 06:00 Sodium 134 L (137-145) mmol/L Potassium 4.2 (3.6-5.0) mmol/L Chloride 93.1 L (98-107) mmol/L Carbon Dioxide 30 (22-30) mmol/L BUN 27 H (9-20) mg/dL Creatinine 1.4 (0.8-1.5) mg/dL Glucose 112 H (75-100) mg/dL Calcium 8.6 (8.4-10.2) mg/dL
--- NOTE | 2016-06-04 18:46 | Progress Note ---
Assessment and Plan Assessment and plan: Acute on chronic systolic congestive heart failure. Continue Lasix iv twice daily. Cardiology evaluated the patient and started on Milrinone infusion. D/ C Milrinone Continue Coreg and Imdur. Non-ischemic cardiomyopathy. EF less than 20% in 2015. He had declined AICD Chronic kidney disease stage III. Monitor creatinine level, avoid nephrotoxins. Hypertension. Blood pressure is stable. He is on Hydralazine, Coreg Sleep apnea. Uses CPAP at night at home but has not been compliant. Fiance at bedside Csays he does not use it much. Hyponatremia. DVT prophylaxis with heparin Full CODE STATUS Morbid obesity. I discussed with him importance of losing weight. History Interval history: less shortness of breath, no chest pain No fever Less leg edema Hospitalist Physical - Physical exam Narrative exam: Gen appearance: Not in acute distress, obese,sitting up HEENT: Normocephalic, atraumatic Neck : supple, no palpable lymph nodes, Lungs: Bilateral basal crackles, no rhonchi, no wheezes. Heart : S1 and S2 regular, no murmurs rubs or gallop, Abdomen: soft non-tender, non-distended, normal bowel sounds Extremities: Bilateral lower extremity edema improving, no clubbing or cyanosis, Neuro :awake alert oriented 3, no focal signs Psych :appropriate mood skin: no rash - Constitutional Vitals: Temp Pulse Resp BP Pulse Ox 98.9 F 85 21 131/74 95 06/04/16 08:00 06/04/16 11:04 06/04/16 11:04 06/04/16 08:00 06/04/16 11:04 General appearance: Present: obese Results - Labs CBC & Chem 7: 06/03/16 07:01 06/03/16 06:00 Labs: Laboratory Last Values WBC 6.3 K/mm3 (4.5-11.0) 06/03/16 07:01 RBC 6.04 M/mm3 (3.65-5.03) H 06/03/16 07:01 Hgb 17.1 gm/dl (11.8-15.2) H 06/03/16 07:01 Hct 52.9 % (35.5-45.6) H 06/03/16 07:01 MCV 88 fl (84-94) 06/03/16 07:01 MCH 28 pg (28-32) 06/03/16 07:01 MCHC 32 % (32-34) 06/03/16 07:01 RDW 16.3 % (13.2-15.2) H 06/03/16 07:01 Plt Count 221 K/mm3 (140-440) 06/03/16 07:01 [place] % (Auto) Fabric Worker 06/02/16 06:30 Add Manual Diff Complete 06/02/16 06:30 Total Counted 100 06/02/16 06:30 Seg Neuts % (Manual) 75.0 % (40.0-70.0) H 06/02/16 06:30 Band Neutrophils % 2.0 % 06/02/16 06:30 Lymphocytes % (Manual) 8.0 % (13.4-35.0) L 06/02/16 06:30 Reactive Lymphs % (Man) 0 % 06/02/16 06:30 Monocytes % (Manual) 15.0 % (0.0-7.3) H 06/02/16 06:30 Eosinophils % (Manual) 0 % (0.0-4.3) 06/02/16 06:30 Basophils % (Manual) 0 % (0.0-1.8) 06/02/16 06:30 Metamyelocytes % 0 % 06/02/16 06:30 Myelocytes % 0 % 06/02/16 06:30 Promyelocytes % 0 % 06/02/16 06:30 Blast Cells % 0 % 06/02/16 06:30 Nucleated RBC % Not Reportable 06/02/16 06:30 Seg Neutrophils # Man 5.0 K/mm3 (1.8-7.7) 06/02/16 06:30 Band Neutrophils # 0.1 K/mm3 06/02/16 06:30 Lymphocytes # (Manual) 0.5 K/mm3 (1.2-5.4) L 06/02/16 06:30 Abs React Lymphs (Man) 0.0 K/mm3 06/02/16 06:30 Monocytes # (Manual) 1.0 K/mm3 (0.0-0.8) H 06/02/16 06:30 Eosinophils # (Manual) 0.0 K/mm3 (0.0-0.4) 06/02/16 06:30 Basophils # (Manual) 0.0 K/mm3 (0.0-0.1) 06/02/16 06:30 Metamyelocytes # 0.0 K/mm3 06/02/16 06:30 Myelocytes # 0.0 K/mm3 06/02/16 06:30 Promyelocytes # 0.0 K/mm3 06/02/16 06:30 Blast Cells # 0.0 K/mm3 06/02/16 06:30 WBC Morphology Not Reportable 06/02/16 06:30 Hypersegmented Neuts Not Reportable 06/02/16 06:30 Hyposegmented Neuts Not Reportable 06/02/16 06:30 Hypogranular Neuts Not Reportable 06/02/16 06:30 Smudge Cells Not Reportable 06/02/16 06:30 Toxic Granulation Not Reportable 06/02/16 06:30 Toxic Vacuolation Not Reportable 06/02/16 06:30 Dohle Bodies Not Reportable 06/02/16 06:30 Pelger-Huet Anomaly Not Reportable 06/02/16 06:30 Basilia Rods Not Reportable 06/02/16 06:30 Platelet Estimate Appears normal 06/02/16 06:30 Clumped Platelets Not Reportable 06/02/16 06:30 Plt Clumps, EDTA Not Reportable 06/02/16 06:30 Large Platelets Not Reportable 06/02/16 06:30 Giant Platelets Not Reportable 06/02/16 06:30 Platelet Satelliting Not Reportable 06/02/16 06:30 Plt Morphology Comment Not Reportable 06/02/16 06:30 RBC Morphology Not Reportable 06/02/16 06:30 Dimorphic RBCs Not Reportable 06/02/16 06:30 Polychromasia Few 06/02/16 06:30 Hypochromasia Not Reportable 06/02/16 06:30 Poikilocytosis Not Reportable 06/02/16 06:30 Anisocytosis Not Reportable 06/02/16 06:30 Microcytosis Not Reportable 06/02/16 06:30 Macrocytosis Not Reportable 06/02/16 06:30 Spherocytes Not Reportable 06/02/16 06:30 Pappenheimer Bodies Not Reportable 06/02/16 06:30 Sickle Cells Not Reportable 06/02/16 06:30 Target Cells Not Reportable 06/02/16 06:30 Tear Drop Cells Not Reportable 06/02/16 06:30 Ovalocytes Not Reportable 06/02/16 06:30 Stomatocytes 1+ 06/01/16 13:55 Helmet Cells Not Reportable 06/02/16 06:30 [place] Bodies Not Reportable 06/02/16 06:30 [place] Rings Not Reportable 06/02/16 06:30 Mihaela Cells Not Reportable 06/02/16 06:30 Bite Cells Not Reportable 06/02/16 06:30 Crenated Cell Not Reportable 06/02/16 06:30 Elliptocytes Not Reportable 06/02/16 06:30 Acanthocytes (Spur) Not Reportable 06/02/16 06:30 Rouleaux Not Reportable 06/02/16 06:30 Hemoglobin C Crystals Not Reportable 06/02/16 06:30 Schistocytes Not Reportable 06/02/16 06:30 Malaria parasites Not Reportable 06/02/16 06:30 Jacob Bodies Not Reportable 06/02/16 06:30 Hem Pathologist Commnt No 06/02/16 06:30 PT 13.6 Sec. (12.2-14.9) 06/01/16 13:55 INR 1.05 (0.87-1.13) 06/01/16 13:55 APTT 29.1 Sec. (24.2-36.6) 06/01/16 13:55 POC ABG pH 7.360 (7.35-7.45) 06/03/16 20:38 POC ABG pCO2 63.4 (35-45) H 06/03/16 20:38 POC ABG pO2 80 (80-105) 06/03/16 20:38 POC ABG HCO3 35.8 06/03/16 20:38 POC ABG Total CO2 38 06/03/16 20:38 POC ABG O2 Sat 95 06/03/16 20:38 POC ABG Base Excess 10 06/03/16 20:38 FiO2 50 % 06/03/16 20:38 Sodium 134 mmol/L (137-145) L 06/03/16 06:00 Potassium 4.2 mmol/L (3.6-5.0) 06/03/16 06:00 Chloride 93.1 mmol/L (98-107) L 06/03/16 06:00 Carbon Dioxide 30 mmol/L (22-30) 06/03/16 06:00 Anion Gap 15 mmol/L 06/03/16 06:00 BUN 27 mg/dL (9-20) H 06/03/16 06:00 Creatinine 1.4 mg/dL (0.8-1.5) 06/03/16 06:00 Estimated GFR > 60 ml/min 06/03/16 06:00 BUN/Creatinine Ratio 19.28 % 06/03/16 06:00 Glucose 112 mg/dL (75-100) H 06/03/16 06:00 Calcium 8.6 mg/dL (8.4-10.2) 06/03/16 06:00 Total Bilirubin 0.5 mg/dL (0.1-1.2) 06/01/16 13:55 AST 25 units/L (5-40) 06/01/16 13:55 ALT 30 units/L (7-56) 06/01/16 13:55 Alkaline Phosphatase 73 units/L (35-129) 06/01/16 13:55 Total Creatine Kinase 205 units/L (55-170) H 06/03/16 21:23 CK-MB (CK-2) 2.5 ng/mL (0.0-4.0) 06/03/16 21:23 CK-MB (CK-2) Rel Index 1.2 (0-4) 06/03/16 21:23 Troponin T 0.013 ng/mL (0.00-0.029) 06/03/16 21:23 NT-Pro-B Natriuret Pep 3602 pg/mL (0-450) H 06/01/16 13:55 Total Protein 7.2 g/dL (6.3-8.2) 06/01/16 13:55 Albumin 3.7 g/dL (3.9-5) L 06/01/16 13:55 Albumin/Globulin Ratio 1.1 % 06/01/16 13:55 Urine Color Straw (Yellow) 06/01/16 13:15 Urine Turbidity Clear (Clear) 06/01/16 13:15 Urine pH 6.0 (5.0-7.0) 06/01/16 13:15 Ur Specific [place] 1.008 (1.003-1.030) 06/01/16 13:15 Urine Protein 30 mg/dl mg/dL (Negative) 06/01/16 13:15 Urine Glucose (UA) Neg mg/dL (Negative) 06/01/16 13:15 Urine Ketones Neg mg/dL (Negative) 06/01/16 13:15 Urine Blood Sm (Negative) 06/01/16 13:15 Urine Nitrite Neg (Negative) 06/01/16 13:15 Urine Bilirubin Neg (Negative) 06/01/16 13:15 Urine Urobilinogen < 2.0 mg/dL (<2.0) 06/01/16 13:15 Ur Leukocyte Esterase Neg (Negative) 06/01/16 13:15 Urine WBC (Auto) < 1.0 /HPF (0.0-6.0) 06/01/16 13:15 Urine RBC (Auto) 3.0 /HPF (0.0-6.0) 06/01/16 13:15
[2016-06-05] MEDS: HEPARIN SUB-Q SCH (06:21)
[2016-06-05 08:02] VITALS: BP 154/103
[2016-06-05] MEDS ORDERED: NACL 0.9% 1000 ML ONE (09:00)
[2016-06-05] MEDS ORDERED: QUELICIN ONE ×2 (09:01→10:00)
--- NOTE | 2016-06-05 10:52 | Discharge Summary ---
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 2.Follow up with Dr. Kwan in 1 week. Follow up with: PRIMARY CARE, [Primary Care Provider] - 3-5 Days Prescriptions: Benzonatate [Tessalon Perles] 100 mg PO Q6H PRN #20 capsule PRN Reason: Cough
[2016-06-05] MEDS ORDERED: SODIUM BICARBONATE IV ONE (11:17)
[2016-06-05] MEDS ORDERED: INTROPIN DRIP 800 MG/D5W 250 ML IV ONE (11:17)
[2016-06-05] MEDS ORDERED: ADRENALIN ONE (11:17)
[2016-06-05] MEDS ORDERED: CALCIUM CHLORIDE IV ONE (11:17)
--- NOTE | 2016-06-05 11:50 | Discharge Summary ---
Providers - Providers Date of Admission: 06/01/16 15:57 Date of discharge: 06/05/16 Attending physician: MANA GRISSOM Primary care physician: CURT RAYMOND MD Hospitalization Hospital course: Patient is 40 yo with chronic CHF, cardiomyopathy, chronic kidney disease, sleep apnea. He presented to the hospital with shortness of breath and leg edema. He was diagnosed with CHF exacerbation. The patient was started on Lasix iv, supplemental Oxygen and admitted. cardiology was consulted and he was evaluated. cardiology noted that patient dad refused AICD placement for cardiomyopathy with EF 20%. He felt better, less shortness of breath and less leg edema. However on 06/05/16, two days after admission he had sudden asystole while he was sleeping. Code Blue was called. Code blue was run as per protocol, but was unsuccessful in resuscitating him. He was pronounced 06/05/16 at 1135am. Total time spent on discharge, 35 mins Disposition: - Discharge Diagnoses (1) Patient in hospital Status: Acute (2) Cardiorespiratory arrest Status: Acute (3) Acute on chronic systolic heart failure Status: Acute (4) Shortness of breath Status: Acute (5) Sleep apnea Status: Chronic Qualifiers: Sleep apnea type: S (6) Morbid obesity Status: Chronic Qualifiers: Obesity type: O (7) HTN (hypertension) Status: Acute Qualifiers: Hypertension type: H (8) Hyponatremia Status: Acute (9) NICM (nonischemic cardiomyopathy) Status: Chronic (10) CKD (chronic kidney disease) stage 3, GFR 30-59 ml/min Status: Chronic Core Measure Documentation - Palliative Care Palliative Care/ Comfort Measures: Not Applicable - Core Measures Any of the following diagnoses?: heart failure - Heart Failure Discharge Requirements SEGUN/ARB for LVSD if EF <40%: No Reason for no SEGUN/ARB: Renal impairment Beta linda at discharge: Yes Exam - Constitutional Vitals: Temp Pulse Resp BP Pulse Ox 99.0 F 97 H 24 154/103 92 06/05/16 08:00 06/05/16 09:38 06/05/16 09:38 06/05/16 08:00 06/05/16 09:38 Plan Follow up with: PRIMARY CARE, [Primary Care Provider] - 3-5 Days Prescriptions: Benzonatate [Tessalon Perles] 100 mg PO Q6H PRN #20 capsule PRN Reason: Cough
--- NOTE | 2016-06-05 11:50 | Death Note ---
Note Date of : 06/05/16 Time of : 11:35 Time Pronounced: :35
== END 2016-06-05 14:30 | DRG 291 ==
LOC: ED 13:01 → 4A 15:57
PROVIDERS: ADMIT Internal Medicine; ATTEND Internal Medicine
PROC: 5A09457 Assistance with Respiratory Ventilation, 24-96 Consecutive Hours, Continuous Positive Airway Pressure (ICD-10-PCS; principal; 2016-06-03)
PROC: 4A033R1 Measurement of Arterial Saturation, Peripheral, Percutaneous Approach (ICD-10-PCS; 2016-06-03)
PROC: 5A12012 Performance of Cardiac Output, Single, Manual (ICD-10-PCS; 2016-06-05)
PROC: 0CHY7BZ Insertion of Airway into Mouth and Throat, Via Natural or Artificial Opening (ICD-10-PCS; 2016-06-05)
DX: I13.0 Hypertensive heart and chronic kidney disease with heart failure and stage 1 through stage 4 chronic kidney disease, or unspecified chronic kidney disease (principal); I50.23 Acute on chronic systolic (congestive) heart failure; E87.1 Hypo-osmolality and hyponatremia; Z68.41 Body mass index [BMI] 40.0-44.9, adult; N18.3 Chronic kidney disease, stage 3 (moderate); E66.01 Morbid (severe) obesity due to excess calories; I42.0 Dilated cardiomyopathy; G47.33 Obstructive sleep apnea (adult) (pediatric); I48.0 Paroxysmal atrial fibrillation; Z91.19 Patient's noncompliance with other medical treatment and regimen; Z79.82 Long term (current) use of aspirin; Z79.899 Other long term (current) drug therapy; Z87.891 Personal history of nicotine dependence; Z82.49 Family history of ischemic heart disease and other diseases of the circulatory system
CPT/HCPCS: 36415; 36600; 71010; 71020; 80048; 80053; 81001; 82550; 82553; 82803; 82962; 83880; 84484; 85007; 85025; 85027; 85610; 85730; 93005; 93010; 94640; 94660; 94760; 96374; J0171; J0330; J1265; J1644; J1940; J2260; J2405; J7030